=== PATIENT | male | born 1950 | race Asian ===

== ENCOUNTER 2022-06-17 16:19 | Outpatient (CLI) | payer MEDICARE, BC | END 2022-06-17 16:20 | disposition home or self-care (01) | LOC: CSHRAD 16:19 | PROVIDERS: ATTEND Internal Medicine | DX: R05.9 Cough, unspecified (principal) | CPT/HCPCS: 71046 ==

== ENCOUNTER 2022-08-27 08:04 | Outpatient (CLI) | payer MEDICARE, BC | END 2022-08-27 08:05 | disposition home or self-care (01) | LOC: CSHCT 08:04 | PROVIDERS: ATTEND Internal Medicine | DX: R31.29 Other microscopic hematuria (principal); N13.5 Crossing vessel and stricture of ureter without hydronephrosis; N20.0 Calculus of kidney; I72.8 Aneurysm of other specified arteries | CPT/HCPCS: 74178; 82565 ==

== ENCOUNTER 2022-10-14 08:34 | Outpatient (CLI) | payer MEDICARE, BC ==
[2022-10-14] MEDS ORDERED: Magnevist 469MG/ML 20 ML VIAL ONE (10:36)
== END 2022-10-14 08:35 | disposition home or self-care (01) ==
LOC: CSHMRI 08:34
PROVIDERS: ATTEND Specialist
DX: C78.7 Secondary malignant neoplasm of liver and intrahepatic bile duct (principal); N28.9 Disorder of kidney and ureter, unspecified
CPT/HCPCS: 74183

== ENCOUNTER → 2022-11-06 | Day surgery (SDC) | payer MEDICARE, BC | LOC: CSHSDC/OP 09:38 | PROVIDERS: ATTEND Specialist | DX: Z48.00 Encounter for change or removal of nonsurgical wound dressing (principal) ==

== ENCOUNTER → 2022-11-20 | Day surgery (SDC) | payer MEDICARE, BC | LOC: CSHSDC 09:48 | PROVIDERS: ATTEND Specialist | DX: Z45.2 Encounter for adjustment and management of vascular access device (principal) ==